=== PATIENT | female | born 1990 | race Caucasian/White ===

== ENCOUNTER → 2018-04-05 | Outpatient (CLI) | payer BC ==
--- NOTE | 2018-04-05 16:04 | PCVCIMAG ---
APPROVED REPORT Study performed: 04/05/2018 14:17:23 EXAM: Comprehensive 2D, Doppler, and color-flow Echocardiogram Patient Location: Echo lab Room #: 3Status: routine BSA: 2.26 HR: 102 bpmBP: 162/84 mmHg Rhythm: NSR Other Information Study Quality: Adequate Risk Factors: Cardiac Risk Factors: HTN, DM, dyslipidemia Indications Diabetes Murmur Hypertension/HDD 2D Dimensions IVSd: 7.16 (7-11mm)LVOT Diam: 19.76 (18-24mm) LVDd: 46.54 mm PWd: 8.94 (7-11mm)Ascending Ao: 28.66 (22-36mm) LVDs: 22.99 (25-40mm) Left Atrium: 28.47 (27-40mm) Aortic Root: 24.57 mm LV Single Plane 4CH: 66.54 % LV Single Plane 2CH: 61.45 % Biplane EF: 64.3 % Volumes Left Atrial Volume (Systole) Single Plane 4CH: 48.25 mLSingle Plane 2CH: 55.11 mL Biplane LA Volume: 56.00 mLLA ESV Index: 25.00 mL/m2 Aortic Valve AoV Peak Eusebio.: 1.70 m/s AO Peak Gr.: 11.59 mmHg Mitral Valve E/A Ratio: 1.1 MV Decel. Time: 94.69 ms MV E Max Eusebio.: 1.03 m/s MV A Eusebio.: 0.95 m/s MV PHT: 27.46 ms Pulmonary Valve PV Peak Eusebio.: 1.28 m/sPV Peak Gr.: 6.54 mmHg Pulmonary Vein P Vein S: 0.53 m/sP Vein A: 0.31 m/s P Vein D: 0.61 m/sP Vein A Dur.: 86.5 msec P Vein S/D Ratio: 0.87 Tricuspid Valve TR Peak Eusebio.: 1.44 m/s TR Peak Gr.: 8.25 mmHg TV Vmax: 0.88 m/s Left Ventricle The left ventricle is normal size. There is normal LV segmental wall motion. There is normal left ventricular wall thickness. Left ventricular systolic function is normal. The left ventricular ejection fraction is within the normal range. LVEF is 60-65%. The left ventricular diastolic function is normal. Right Ventricle The right ventricle is normal size. The right ventricular systolic function is normal. Atria The left atrium size is normal. The right atrium size is normal. Aortic Valve Aortic valve is trileaflet. The aortic valve is normal in structure. No aortic regurgitation is present. There is no aortic valvular stenosis. Mitral Valve The mitral valve is normal in structure. There is no mitral valve regurgitation noted. No evidence of mitral valve stenosis. Tricuspid Valve The tricuspid valve is normal in structure. Trace tricuspid regurgitation. No pulmonary hypertension. Pulmonic Valve The pulmonary valve is normal in structure. There is no pulmonic valvular regurgitation. Great Vessels The aortic root is normal in size. The ascending aorta is normal in size. Aortic arch is normal in caliber. IVC is normal in size and collapses >50% with inspiration. Pericardium There is no pericardial effusion. There is no pleural effusion. <Conclusion> 1. Normal echocardiogram with Doppler. EF 65% 2. Structural valve disease was absent. No significant regurgitant or stenotic lesions 3. Pulmonary artery pressure could not be reliably ascertained 4. No pericardial effusion
== END | disposition home or self-care (01) ==
LOC: PCVCIMAG 14:22
PROVIDERS: ATTEND Internal Medicine
DX: R01.1 Cardiac murmur, unspecified (principal); I10 Essential (primary) hypertension; E11.9 Type 2 diabetes mellitus without complications
CPT/HCPCS: 93306